=== PATIENT | male | born 1970 | race Caucasian/White ===

== ENCOUNTER 2016-05-27 16:11 | Emergency (ER) | payer MEDICARE, OTHER ==
[~2016-05-27] VITALS: Ht 182.9 cm; Wt 147.5 kg
[~2016-05-27 16:11] MED LIST: ACYC400T2 PO; ATOR10TA23; BENA10TA48; CITA20TA6; FURO40TA4; IBUP-1542 PO; METF500T3; MONT10TA21; POTA-57; SITA100T8; VERA10 NASAL
[2016-05-27 16:23] VITALS: Ht 182.9 cm; Wt 147.5 kg
--- NOTE | 2016-05-27 18:22 | RADRPT ---
PROCEDURE: US Lower extremity Venous. CLINICAL INDICATION: right ankle pain and swelling TECHNIQUE: Multiple sonographic images of the right lower extremity deep venous system was obtaine d utilizing grayscale, color-flow, compressive sonography and doppler imaging with augmentation. Th e images were reviewed on a PACS workstation. COMPARISON: None. FINDINGS: There is normal compressibility and flow within the right common femoral, deep femoral, superficial femoral and popliteal veins. The deep veins the calf were incompletely visualized. IMPRESSION: No sonographic evidence for deep venous thrombosis in the right lower extremity. Physician Reilly Date Time Electronically viewed and signed by Physician Reilly on 05/27/2016 18:22 ML/
--- NOTE | 2016-05-27 18:28 | RADRPT ---
PROCEDURE: XR right foot. CLINICAL INDICATION: Foot pain TECHNIQUE: Three views are available for review. COMPARISON: None available FINDINGS: The osseous structures are normal in mineralization, architecture and alignment. No fracture or osse ous lesion is identified. The joints are unremarkable. The soft tissues are unremarkable. IMPRESSION: Unremarkable examination. RPTAT: HGDB .Jose Nieto MD, MD Date Time Electronically viewed and signed by .Jose Nieto MD, on 05/27/2016 18:28 .B/
--- NOTE | 2016-05-27 18:29 | RADRPT ---
PROCEDURE: XR right ankle. CLINICAL INDICATION: Ankle pain TECHNIQUE: Three views are available for review. COMPARISON: None available FINDINGS: There is diffuse soft tissue swelling. The osseous structures are normal in mineralization, architecture and alignment. No fracture or osse ous lesion is identified. The joints are unremarkable. IMPRESSION: Diffuse soft tissue swelling No osseous abnormalities identified RPTAT: HGDB .Jose Nieto MD, MD Date Time Electronically viewed and signed by .Jose Nieto MD, on 05/27/2016 18:28 .B/
--- NOTE | 2016-05-27 18:45 | ERD ---
ER Documentation Chief Complaint Date/Time DATE: 05/27/16 TIME: 18:38 Chief Complaint right ankle pain x 1 week; no trauma HPI Patient is a 45-year-old male with a history of diabetes, CHF , asthma and sleep apnea who presents to the ED with right ankle swelling and pain. He states that he was sent here from his primary care provider to rule out DVT and fracture. He denies any trauma or triggering factor. He states that he is able to walk without difficulty. He states that the pain is located on the medial malleolus. He denies swelling or increase in redness. Denies calf pain. Denies pain above his ankle. Denies cough, shortness of breath or difficulty breathing. Denies recent travel, recent surgeries. ROS All systems reviewed and are negative except as per history of present illness. Medications Home Meds Active Scripts Ibuprofen* (Motrin*) 600 Mg Tab, 600 MG PO Q6, #30 TAB Prov:ROMAN RUEDA NP 01/07/16 Acyclovir* (Acyclovir*) 400 Mg Tablet, 400 MG PO TID for 7 Days, TAB Prov:ROMAN RUEDA NP 01/07/16 Reported Medications Fluticasone Furoate* (Veramyst* Nasal) 10 Gm [place].susp, 2 SPRAY NASAL DAILY 03/29/12 Metformin* (Glucophage* XR) 500 Mg Tab.sr.24h, DAILY 03/29/12 Benazepril Hcl* (Benazepril Hcl*) 10 Mg Tablet, DAILY 03/29/12 Furosemide (Lasix) 40 Mg Tab, DAILY 03/29/12 Potassium Chloride* (Klor-Con*) 20 Meq Tabsr, BID 03/29/12 Sitagliptin* (Januvia*) 100 Mg Tablet, DAILY 03/29/12 Citalopram Hydrobromide* (Citalopram Hydrobromide*) 20 Mg Tablet, DAILY 03/29/12 Montelukast Sodium* (Singulair*) 10 Mg Tablet, DAILY 03/29/12 Atorvastatin (Lipitor) 10 Mg Tablet, DAILY 03/29/12 Allergies Allergies: Coded Allergies: morphine (Verified Allergy, Unknown, 05/27/16) PMhx/Soc Hx Respiratory Disorders: Yes (COPD, ASTHMA, SLEEP APNEA) Hx Cardiac Disorders: Yes (CHF) Hx Miscellaneous Medical Probl: Yes (DM) Hx Alcohol Use: No Hx Substance Use: No Hx Tobacco Use: No Physical Exam Vitals Vital Signs Date Time Temp Pulse Resp B/P Pulse Ox O2 Delivery O2 Flow Rate FiO2 05/27/16 16:23 98.1 67 18 112/70 97 Physical Exam GENERAL: Well-developed, well-nourished male. Appears in no acute distress. HEAD: Normocephalic, atraumatic. EYES: Pupils are equally reactive bilaterally. EOMs grossly intact. No conjunctival erythema. ENT: Moist mucous membranes. No uvula deviation. No kissing tonsils. No exudates. NECK: Supple. No lymphadenopathy or thyromegaly. No meningismus. negative kernig. negative brudinski. LUNG: Clear to auscultation bilaterally. No rhonchi, wheezing, rales or coarse breath sounds. HEART: Regular rate and rhythm. No murmurs, rubs or gallops. Extremities: Equal pulses bilaterally. No peripheral clubbing, cyanosis or edema. No unilateral leg swelling. Tenderness to the medial malleolus. Pulses intact bilaterally. Negative Homans sign. Negative calf swelling. NEUROLOGIC: Alert and oriented. Moving all four extremities. 5/5 strength in all extremities. Normal speech. Steady gait. SKIN: Normal color. Warm and dry. No rashes or lesions. Capillary refill < 2 seconds Procedures/MDM ER COURSE: I kept the patient and/or family informed of laboratory and diagnostic imaging results throughout the emergency room course. EKG, MONITORS, & DIAGNOSTIC IMAGING: [place] [address] Radiology Main Line: [phone] DIAGNOSTIC IMAGING REPORT Patient: CLARY GOOD : 1970 Age: 45 Sex: M MR #: [id number] DOS: 05/27/16 1728 Ordering MD: JUSTINA SPENCER PA-C Location: [facility] Room/Bed: PROCEDURE: XR right ankle. CLINICAL INDICATION: Ankle pain TECHNIQUE: Three views are available for review. COMPARISON: None available FINDINGS: There is diffuse soft tissue swelling. The osseous structures are normal in mineralization, architecture and alignment. No fracture or osseous lesion is identified. The joints are unremarkable. IMPRESSION: Diffuse soft tissue swelling No osseous abnormalities identified RPTAT: HGDB .Jose Nieto MD, Date Time Electronically viewed and signed by .Jose Nieto MD, MD on 05/27/2016 18:28 .B/ CC: JUSTINA SPENCER PA-C [place] [address] Radiology Main Line: [phone] DIAGNOSTIC IMAGING REPORT Patient: CLARY GOOD : 1970 Age: 45 Sex: M MR #: [id number] DOS: 05/27/16 1728 Ordering MD: JUSTINA SPENCER PA-C Location: [facility] Room/Bed: PROCEDURE: US Lower extremity Venous. CLINICAL INDICATION: right ankle pain and swelling TECHNIQUE: Multiple sonographic images of the right lower extremity deep venous system was obtained utilizing grayscale, color-flow, compressive sonography and doppler imaging with augmentation. The images were reviewed on a PACS workstation. COMPARISON: None. FINDINGS: There is normal compressibility and flow within the right common femoral, deep femoral, superficial femoral and popliteal veins. The deep veins the calf were incompletely visualized. IMPRESSION: No sonographic evidence for deep venous thrombosis in the right lower extremity. Physician Reilly Date Time Electronically viewed and signed by Physician Reilly on 05/27/2016 18 :22 ML/ CC: JUSTINA SPENCER PA-C [place] [address] Radiology Main Line: [phone] DIAGNOSTIC IMAGING REPORT Patient: CLARY GOOD : 1970 Age: 45 Sex: M MR #: [id number] DOS: 05/27/16 1728 Ordering MD: JUSTINA SPENCER PA-C Location: [facility] Room/Bed: PROCEDURE: XR right foot. CLINICAL INDICATION: Foot pain TECHNIQUE: Three views are available for review. COMPARISON: None available FINDINGS: The osseous structures are normal in mineralization, architecture and alignment. No fracture or osseous lesion is identified. The joints are unremarkable. The soft tissues are unremarkable. IMPRESSION: Unremarkable examination. RPTAT: HGDB .Jose Nieto MD, MD Date Time Electronically viewed and signed by .Jose Nieto MD, on 05/27/2016 18:28 .B/ CC: JUSTINA SPENCER PA-C MEDICAL DECISION MAKING: This is a 45-year-old male with a past medical history of CHF, diabetes asthma sleep apnea who presents with right ankle pain. Vital signs were reviewed. Patient is afebrile. Patient is not hypoxic. Patient is not toxic or ill- appearing. patient has ankle pain of uncertain etiology. His ultrasound was read by radiologist is unremarkable his ultrasound of his lower extremity venous does not show signs of DVT.. Low suspicion for pneumonia, PE, pneumothorax, ACS, epiglottitis, obstruction, TB, pertussis, meningitis, sepsis. Low suspicion for dislocation, fracture, septic joint, compartment syndrome, osteomyelitis, cellulitis, avascular necrosis, neurological injury, vascular injury, tendon laceration. PERC Criteria Assessment: Age > 50: No HR > 100: No 02 < 95%: No H/o DVT/PE: No Recent trauma/surgery: No Hemoptysis: No Exogenous Estrogen: No Unilateral Leg swelling: No Pretest probability > 15%: No [Less than 2% risk of PE. No further work up is necessary] DISCHARGE: At this time, patient is stable for discharge and outpatient management with no new complaints during the ER course. Patient was sent home with Trevor wrap and to follow-up with primary care provider.. Patient will be discharged home with instructions to recheck for new or worsening symptoms such as fever, nausea, weakness, LOC and to follow up with primary care in the next 1-2 days. Patient was advised to return to the ER for any new or worsening symptoms. Plan was discussed and patient and/or family understands and agrees. Home instructions were given. Departure Diagnosis: Primary Impression: Ankle pain Laterality: right Chronicity: unspecified Qualified Code: M25.571 - Right ankle pain, unspecified chronicity Condition: Stable JUSTINA SPENCER PA-C May 27, 2016 18:45
[2016-05-27 18:57] VITALS: BP 146/68; PULSE 63; RESP 18; TEMP 98.1
== END 2016-05-27 18:57 | disposition home or self-care (01) ==
LOC: FTE 16:11
DX: M25.571 Pain in right ankle and joints of right foot (principal); J44.9 Chronic obstructive pulmonary disease, unspecified; J45.909 Unspecified asthma, uncomplicated; I50.9 Heart failure, unspecified; E11.9 Type 2 diabetes mellitus without complications; Z79.84 Long term (current) use of oral hypoglycemic drugs
CPT/HCPCS: 73630; 93971

== ENCOUNTER 2016-09-07 | Emergency (ER) | payer MEDICARE, OTHER ==
[~2016-09-07] VITALS: Ht 177.8 cm; Wt 146.0 kg
[2016-09-07 00:07] VITALS: Ht 177.8 cm; Wt 146.0 kg
[2016-09-07] MEDS ORDERED: HYDROCODONE/APAP (5/325) TAB PO ONE (01:00)
--- NOTE | 2016-09-07 01:57 | RADRPT ---
PROCEDURE: X-ray right hand CLINICAL INDICATION: Injury to the right hand TECHNIQUE: 3 views right hand COMPARISON: None FINDINGS: Reference marker is directed to the first MCP joint, without evident underlying radiographic abnorma lity. No acute fracture or dislocation. Soft tissues unremarkable. IMPRESSION: No acute fracture. RPTAT: [facility] Physician Aurora Date Time Electronically viewed and signed by Melvin Servin Physician on 09/07/2016 01:57 RS/
--- NOTE | 2016-09-07 02:28 | ERD ---
ER Documentation Chief Complaint Date/Time DATE: 09/07/16 TIME: 02:07 Chief Complaint sp trip and fall today, right thumb pain HPI This pleasant 45-year-old male patient reports right hand injury today. Patient reports mechanical slip and fall over his dog today onto his right hand. Patient denies any other injury, denies hitting his head or loss of consciousness patient reports he dislocated his thumb and his pulled on it placing it back into socket. Patient reports he has decreased hand strength, pain with flexion and extension, pain is 10 out of 10 on pain scale described as denies any loss of sensation, denies numbness or tingling to his fingertips, he denies any pain in his wrist or pain with supination or pronation. ROS All systems reviewed and are negative except as per history of present illness. Medications Home Meds Active Scripts Ibuprofen* (Motrin*) 600 Mg Tab, 600 MG PO Q6, #30 TAB Prov:ROMAN RUEDA NP 01/07/16 Acyclovir* (Acyclovir*) 400 Mg Tablet, 400 MG PO TID for 7 Days, TAB Prov:ROMAN RUEDA NP 01/07/16 Reported Medications Fluticasone Furoate* (Veramyst* Nasal) 10 Gm [place].susp, 2 SPRAY NASAL DAILY 03/29/12 Metformin* (Glucophage* XR) 500 Mg Tab.sr.24h, DAILY 03/29/12 Benazepril Hcl* (Benazepril Hcl*) 10 Mg Tablet, DAILY 03/29/12 Furosemide (Lasix) 40 Mg Tab, DAILY 03/29/12 Potassium Chloride* (Klor-Con*) 20 Meq Tabsr, BID 03/29/12 Sitagliptin* (Januvia*) 100 Mg Tablet, DAILY 03/29/12 Citalopram Hydrobromide* (Citalopram Hydrobromide*) 20 Mg Tablet, DAILY 03/29/12 Montelukast Sodium* (Singulair*) 10 Mg Tablet, DAILY 03/29/12 Atorvastatin (Lipitor) 10 Mg Tablet, DAILY 03/29/12 Allergies Allergies: Coded Allergies: morphine (Verified Allergy, Unknown, 05/27/16) PMhx/Soc Hx Respiratory Disorders: Yes (COPD, ASTHMA, SLEEP APNEA) Hx Cardiac Disorders: Yes (CHF) Hx Miscellaneous Medical Probl: Yes (DM) Hx Alcohol Use: No Hx Substance Use: No Hx Tobacco Use: No Smoking Status: Never smoker Physical Exam Vitals Vital Signs Date Time Temp Pulse Resp B/P Pulse Ox O2 Delivery O2 Flow Rate FiO2 09/07/16 00:07 97.8 69 20 141/65 99 Vitals stable, triage notes reviewed Physical Exam Const: No acute distress Head: Atraumatic Eyes: Conjunctiva injected, PERRLA, EOMI ENT: Normal External Ears, Nose and Mouth, mucous membranes moist Neck: Resp: Chest rise and fall symmetrically, clear to auscultation bilaterally no respiratory distress Cardio: Abd: Skin: No petechiae or rashes, no lesion, laceration or abrasion Back: Ext: Hand - right: Skin: Skin intact, no laceration, or evidence of external trauma Compartments: Soft Sensation: Intact shoulder/pinky/middle finger/thumb web space Bones: Nontender Snuffbox: Nontender Joints: No effusion Wrist: Flex/Ext: Normal Uln/Radial deviation: Normal Pron/Supination [Normal] Finger: Flex/Ext: Normal Add/abd: Normal Thumb: Flex/Ext: Normal Opposition: Normal Thumbs up: Normal Neur: Awake and alert Psych: Normal Mood and Affect Results 24 hrs Current Medications Medications (Trade) Dose Ordered Sig/Jarrod Route PRN Reason Start Time Stop Time Status Last Admin Dose Admin Acetaminophen/ Hydrocodone Bitart ([place] (5/325)) 1 tab ONCE ONCE PO 09/07/16 01:00 09/07/16 01:01 DC 09/07/16 00:53 Procedures/MDM PROCEDURE: X-ray right hand CLINICAL INDICATION: Injury to the right hand TECHNIQUE: 3 views right hand COMPARISON: None FINDINGS: Reference marker is directed to the first MCP joint, without evident underlying radiographic abnormality. No acute fracture or dislocation. Soft tissues unremarkable. IMPRESSION: No acute fracture. Physician Aurora Date Time Electronically viewed and signed by Physician Aurora on 09/07/2016 01:57 This pleasant 45-year-old male patient presented to emergency department today after mechanical trip and fall over his dog landing on outstretched hand on right injury right thumb. Patient reports dislocation was reduced by his at home. Fracture, tendon injury likely, x-ray interpretation no acute fracture. Patient treated with one [place] while in the emergency department will be discharged home with Motrin, Trevor wrap applied to hand for comfort. Rest , ice, compression, return to emergency room for worsening of symptoms, increased pain, loss of function, numbness or tingling I feel the patient is stable for discharge at this time outpatient management by primary care physician. I have discussed results, examination findings, the treatment plan with the patient and family present prior to discharge. Indications for emergent reevaluation, side effects of medication were also discussed. All questions were answered. Patient verbalizes understanding and agrees with plan of care. Departure Diagnosis: Primary Impression: Thumb injury Encounter type: initial encounter Laterality: right Qualified Code: S69.91XA - Thumb injury, right, initial encounter Additional Impression: Right hand pain Condition: Good Patient Instructions: Sprain Hand Additional Instructions: Thank you for for coming to [facility] for your care today. Please ask your nurse or provider if you have questions about your care today and do not leave until all your questions have been answered. Please use any medications given as directed and follow-up with your doctor (or the doctor you were referred to) in the next 2-3 days. If you do not have a primary care doctor you may follow up at the [facility] (listed below). You may also use motrin and tylenol as needed for fever and/or pain unless instructed otherwise by your provider or nurse. Indications for more urgent follow-up have been discussed, but you may return to the Emergency Department at ANY time for any worrisome or worsening symptoms. If you have abdominal pain, please know that no test or exam you received is perfect and you should follow up within 8 hours for continued pain. If you had any imaging studies today, such as an X-Ray or CT Scan, these studies will be reviewed later by a radiologist. You will be called if there are important findings that were not identified today, so make sure the contact information you provided at registration is correct. If you received any narcotic pain control medicine today, such as Vicodin, Morphine or Dilaudid, your coordination and judgment may be affected for a number of hours. Please do not drive or operate heavy machinery, and you may want someone to assist you at home. If you were given a prescription for narcotic medication, be aware that it is very addictive- use sparingly and only if necessary. LUIS FELIPE MAR September 07, 2016 02:25
[2016-09-07] MEDS ORDERED: IBUP400T22 PO (02:29)
[2016-09-07 02:48] VITALS: BP 134/65; PULSE 74; RESP 20; TEMP 98.3
== END 2016-09-07 02:48 | disposition home or self-care (01) ==
LOC: FTE
DX: S69.91XA Unspecified injury of right wrist, hand and finger(s), initial encounter (principal); I50.9 Heart failure, unspecified; E11.9 Type 2 diabetes mellitus without complications; J44.9 Chronic obstructive pulmonary disease, unspecified; J45.909 Unspecified asthma, uncomplicated; W01.0XXA Fall on same level from slipping, tripping and stumbling without subsequent striking against object, initial encounter; Y92.9 Unspecified place or not applicable; Z79.84 Long term (current) use of oral hypoglycemic drugs
CPT/HCPCS: 99283

== ENCOUNTER 2017-02-16 20:09 | Emergency (ER) | payer MEDICARE, OTHER ==
[~2017-02-16] VITALS: Ht 182.9 cm; Wt 154.0 kg
[~2017-02-16 20:09] MED LIST changes: +IBUP400T22 PO
[2017-02-16 20:29] VITALS: Ht 182.9 cm; Wt 154.0 kg
--- NOTE | 2017-02-16 21:40 | ERD ---
ER Documentation Chief Complaint Chief Complaint left abdominal pain x 3 months HPI Morbidly obese but otherwise healthy 46-year-old male presenting with a chief complaint of left lower quadrant abdominal pain 3 months. Patient describes the pain as dull. Complains of constipation. Last bowel movement was earlier today and states that the stool was minimal. Able to pass gas. Denies diarrhea , fever, chills, aggravating factors, chest pain, shortness of breath, trauma. It is mildly alleviated after passing stool. Patient has no other complaints and describes no other associated manifestations. Nursing notes have been reviewed and are consistent with history given. ROS All systems reviewed and are negative except as per history of present illness. Medications Home Meds Active Scripts Ibuprofen* (Motrin*) 400 Mg Tab, 400 MG PO Q6, #30 TAB Prov:LUIS FELIPE MAR 09/07/16 Ibuprofen* (Motrin*) 600 Mg Tab, 600 MG PO Q6, #30 TAB Prov:ROMAN RUEDA NP 01/07/16 Acyclovir* (Acyclovir*) 400 Mg Tablet, 400 MG PO TID for 7 Days, TAB Prov:ROMAN RUEDA NP 01/07/16 Reported Medications Fluticasone Furoate* (Veramyst* Nasal) 10 Gm [place].susp, 2 SPRAY NASAL DAILY 03/29/12 Metformin* (Glucophage* XR) 500 Mg Tab.sr.24h, DAILY 03/29/12 Benazepril Hcl* (Benazepril Hcl*) 10 Mg Tablet, DAILY 03/29/12 Furosemide (Lasix) 40 Mg Tab, DAILY 03/29/12 Potassium Chloride* (Klor-Con*) 20 Meq Tabsr, BID 03/29/12 Sitagliptin* (Januvia*) 100 Mg Tablet, DAILY 03/29/12 Citalopram Hydrobromide* (Citalopram Hydrobromide*) 20 Mg Tablet, DAILY 03/29/12 Montelukast Sodium* (Singulair*) 10 Mg Tablet, DAILY 03/29/12 Atorvastatin (Lipitor) 10 Mg Tablet, DAILY 03/29/12 Allergies Allergies: Coded Allergies: morphine (Verified Allergy, Unknown, 02/16/17) PMhx/Soc Hx Respiratory Disorders: Yes (COPD, ASTHMA, SLEEP APNEA) Hx Cardiac Disorders: Yes (CHF) Hx Miscellaneous Medical Probl: Yes (DM) Hx Alcohol Use: No Hx Substance Use: No Hx Tobacco Use: No Physical Exam Vitals Vital Signs Date Time Temp Pulse Resp B/P Pulse Ox O2 Delivery O2 Flow Rate FiO2 02/16/17 20:29 97.9 71 20 136/61 97 Physical Exam Const: Morbidly obese 46-year-old male no acute distress Head: Atraumatic Eyes: Normal Conjunctiva ENT: Normal External Ears, Nose and Mouth. Neck: Full range of motion..~ No meningismus. Resp: Clear to auscultation bilaterally Cardio: Regular rate and rhythm, no murmurs Abd: Soft, non tender, non distended. Normal bowel sounds Skin: No petechiae or rashes Back: No midline or flank tenderness Ext: No cyanosis, or edema Neur: Awake and alert Psych: Normal Mood and Affect Procedures/MDM Morbidly obese 46-year-old male in no acute distress presenting with a chief complaint of left lower quadrant abdominal pain 3 months. No tenderness to palpation. No history of diarrhea. Signs and symptoms are most consistent with irritable bowel syndrome versus abdominal pain of unknown etiology. Patient will be discharged with suggested [id number] MiraLAX. No indication for CT or lab work at this time. I have no suspicion for serious bacterial infection or other acute abdomen. I have spoke with the patient regarding their condition and future management. They have verbally responded that they understand their status and treatment plan. The patients vitals are stable, and their current condition is appropriate for discharge. The patient will be given discharge instructions with return precautions. Departure Diagnosis: Primary Impression: Abdominal pain Abdominal location: left lower quadrant Qualified Code: R10.32 - Left lower quadrant pain Condition: Stable Patient Instructions: Irritable Bowel Syndrome Referrals: BELINDA BOSS (PCP) Additional Instructions: Follow up with your PCP within the next 1-3 days for a more thorough evaluation and a possible referral to a specialist. Return the the emergency department immediately if symptoms worsen or change. If you have any questions regarding medications, ask your pharmacist or us before you leave. If any adverse reactions occur while taking your medications, discontinue the treatment and return to the emergency department immediately. Take your medications as directed, and complete the entire course of treatment. RENETTA CONTRERAS PA-C Feb 16, 2017 21:40
== END 2017-02-16 22:27 | disposition home or self-care (01) ==
LOC: FTE 20:09
DX: R10.32 Left lower quadrant pain (principal); I50.9 Heart failure, unspecified; J44.9 Chronic obstructive pulmonary disease, unspecified; J45.909 Unspecified asthma, uncomplicated; E11.9 Type 2 diabetes mellitus without complications; Z79.84 Long term (current) use of oral hypoglycemic drugs
CPT/HCPCS: 99282